=== PATIENT | female | born 1955 | race Caucasian/White ===

== ENCOUNTER 2019-04-08 15:39 | Outpatient (CLI) | payer OTHER ==
[~2019-04-08 15:39] MED LIST: DOXY25TA45 PO; ESTR0.5T PO; FLAX100013 PO; HYDR-3237 PO; LACT1CAP20 PO; LEVO75TA5 PO; MULT-642 PO; PROG100C16 PO; ZOLM2.5T31 PO; osteobiflex PO; potassium PO
[2019-04-08 16:17] LABS: CREATININE 0.85 mg/dL (0.55-1.02)
[2019-04-08] MEDS ORDERED: OMNIPAQUE 350 MG/ML, 100ML BOTTLE ONE (17:29)
== END 2019-04-08 23:59 | disposition home or self-care (01) ==
LOC: RAD 15:39
PROVIDERS: ATTEND Family Medicine
DX: K43.9 Ventral hernia without obstruction or gangrene (principal); K76.0 Fatty (change of) liver, not elsewhere classified; J98.11 Atelectasis; Z87.891 Personal history of nicotine dependence
CPT/HCPCS: 36415; 74177; 82565; Q9967

== ENCOUNTER → 2020-10-17 | Outpatient (CLI) | payer MEDICARE, OTHER | END | disposition home or self-care (01) | LOC: RAD 11:52 | PROVIDERS: ATTEND Physician Assistant | DX: R05 Cough (principal) ==